=== PATIENT | male | born 1965 | race Caucasian/White ===

== ENCOUNTER 2017-11-22 13:58 | Observation (INO) | payer BC, OTHER ==
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
--- NOTE | 2017-11-22 14:55 | RAD ---
INDICATION: Syncope with head injury. COMPARISON: Comparison is made with a prior CT of the brain from June 13, 2002. TECHNIQUE: Contiguous axial sections of the brain were obtained from the skull base to the vertex without contrast. FINDINGS: The ventricles, cisterns and sulci are within normal limits. No significant focal abnormality or mass effect is seen. There is no evidence for hemorrhage. No significant focal osseous abnormality is seen. The visualized portion of the paranasal sinuses and mastoid air cells appear clear. IMPRESSION: NO EVIDENCE FOR ACUTE INTRACRANIAL ABNORMALITY.
[2017-11-22 15:17] LABS: ABS Basophils 0 10^3/ul (0-0.2); ABS Eosinophils 0.1 10^3/ul (0-0.6); ABS Lymphocytes 1.3 10^3/ul (1.0-4.8); ABS Monocytes 0.3 10^3/ul (0-0.8); ABS Neutrophils 2.4 10^3/ul (1.5-7.7); ABS Nucleated RBC 0 10^3/ul; Eosinophil % 3.3 % (0-6); Hematocrit 45 % (42-52); Lymphocyte % 30.8 % (25-47); Mean Corpuscular HGB Conc 34 g/dl (31-36); Mean Corpuscular Hemoglobin 32 pg (27-31); Mean Corpuscular Volume 95 fL (80-94); Mean Platelet Volume 10.6 um3 (7.4-10.4); Nucleated Red Blood Cells % 0; Platelet Count 179 10^3/ul (150-450); Red Blood Count 4.69 10^6/ul (4.00-5.40); Red Cell Distribution Width 14 % (10.5-15); White Blood Count 4.2 10^3/ul (3.5-10.8)
[2017-11-22 15:37] LABS: EGFR Non-African American 72.3 (>60)
[2017-11-22] MEDS ORDERED: Acetaminophen TAB* 325 MG PO PRN (17:08)
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
[2017-11-23 05:56] LABS: ABS Basophils 0.1 10^3/ul (0-0.2); ABS Eosinophils 0.2 10^3/ul (0-0.6); ABS Lymphocytes 1.4 10^3/ul (1.0-4.8); ABS Monocytes 0.4 10^3/ul (0-0.8); ABS Neutrophils 2.3 10^3/ul (1.5-7.7); ABS Nucleated RBC 0 10^3/ul; Hematocrit 43 % (42-52); Hemoglobin 14.5 g/dl (14.0-18.0); Lymphocyte % 31.7 % (25-47); Mean Corpuscular HGB Conc 34 g/dl (31-36); Mean Corpuscular Hemoglobin 32 pg (27-31); Mean Corpuscular Volume 95 fL (80-94); Mean Platelet Volume 10.5 um3 (7.4-10.4); Nucleated Red Blood Cells % 0.1; Platelet Count 164 10^3/ul (150-450); Red Blood Count 4.54 10^6/ul (4.00-5.40); Red Cell Distribution Width 14 % (10.5-15); White Blood Count 4.3 10^3/ul (3.5-10.8)
[2017-11-23 10:05] LABS: Urine Appearance Clear; Urine Blood Negative (Negative); Urine Color Yellow; Urine Ketones Negative (Negative); Urine Protein Negative (Negative); Urine Urobilinogen Negative (Negative)
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
[2017-11-23 15:30] VITALS: BP 109/62
--- NOTE | 2017-11-23 16:22 | PN ---
Subjective Date of Service: 11/23/17 Interval History: Mr. Carey reports feeling well. He denies chest pain, SOB, palpitations, dizziness, lightheadedness, nausea, vomiting, or abdominal pain. He is eager for discharge to home. Objective Active Medications: Acetaminophen (Tylenol Tab*) 650 mg PO Q6H PRN Vital Signs: Temp Pulse Resp BP Pulse Ox 97.9 F 59 20 109/62 97 11/23/17 15:29 11/23/17 15:29 11/23/17 15:29 11/23/17 15:29 11/23/17 15:29 Oxygen Devices in Use Now: None Appearance: Male lying in bed in NAD Eyes: No Scleral Icterus Ears/Nose/Mouth/Throat: Mucous Membranes Moist Neck: Trachea Midline Respiratory: Symmetrical Chest Expansion and Respiratory Effort, Clear to Auscultation Cardiovascular: NL Sounds; No Murmurs; No JVD, No Edema Abdominal: NL Sounds; No Tenderness; No Distention Lymphatic: No Cervical Adenopathy Extremities: No Edema Skin: No Rash or Ulcers Neurological: Alert and Oriented x 3, NL Muscle Strength and Tone Nutrition: Taking PO's Result Diagrams: 11/23/17 05:28 11/23/17 05:28 Assess/Plan/Problems-Billing Assessment: Mr. Carey is a 52 yo M with no significant PMH who was admitted on 11/22/17 after a syncopal episode preceeded by a prolonged confusional prodrome. - Patient Problems (1) Syncope Comment: - Patient may have had seizure but certainly appears to have had a syncopal episode, as described sounds vasovagal but no inciting factors. - MRI brain negative, echo negative, no arrhythmias. Recommend outpatient holter monitoring. (2) Seizure Comment: - EEG showing sharp waves concerning though no diagnostic for epileptiform discharges per verbal report from Dr. Sánchez. - Appreciate Dr. Sánchez's consultation, patient offered keppra but would like to think more about it and follow up with Dr. Sánchez outpatient in 2 weeks to discuss it further. (3) DVT prophylaxis (4) Full code status Comment: Status and Disposition: OBV. Discharge to home.
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
--- NOTE | 2017-11-24 03:41 | EEG ---
ELECTROENCEPHALOGRAPHY: DATE OF STUDY: - ROOM #[id number] DATE OF DICTATION: 11/23/17 PATIENT OF: Leandra Boyce NP CLINICAL PROBLEM: This is a 52-year-old man being evaluated for a couple of odd spells. This study was done to rule out seizures. MEDICINES: Include acetaminophen. REPORT: With the patient awake, background cerebral activity consistent with moderate amplitude posterior dominant 9 Hz rhythm. Left frontotemporal theta activity and some sharp waves are noted during the awake state as well as with the patient asleep, background consists of diffuse irregular delta and theta with the patient asleep. No subclinical seizures were noted. CLINICAL IMPRESSION: This awake and sleep EEG is abnormal because of left frontotemporal slowing and some sharply contoured activity suggesting a predisposition to possible focal seizures and perhaps an underlying structural lesion. Clinical correlation is recommended. [id number]/[facility] #: [id number] MTDD
== END 2017-11-23 17:00 | disposition home or self-care (01) ==
LOC: ED 13:58 → MEDTELE 17:31
PROVIDERS: ADMIT Internal Medicine; ATTEND Internal Medicine
DX: R55 Syncope and collapse (principal); R42 Dizziness and giddiness; R51 Headache; Z87.891 Personal history of nicotine dependence; Z88.0 Allergy status to penicillin
CPT/HCPCS: 36415; 70450; 70551; 80048; 80053; 81003; 83605; 83735; 83880; 84443; 84484; 85025; 85379; 85730; 93005; 93306; 95816; 99284; A9270-GY; G0378